=== PATIENT | female | born 1990 | race Caucasian/White ===

== ENCOUNTER 2017-04-16 23:13 | Emergency (ER) | payer OTHER ==
[2017-04-17 00:52] VITALS: BP 144/72
== END 2017-04-17 00:52 | disposition home or self-care (01) ==
LOC: ED 23:13
DX: M25.512 Pain in left shoulder (principal); M54.5 Low back pain; Z79.891 Long term (current) use of opiate analgesic
CPT/HCPCS: J1885; J3301; J3490

== ENCOUNTER 2017-06-04 01:02 | Emergency (ER) | payer OTHER | END 2017-06-04 01:56 | disposition left against medical advice (07) | LOC: ED 01:02 | DX: Z53.21 Procedure and treatment not carried out due to patient leaving prior to being seen by health care provider (principal) | CPT/HCPCS: 36415 ==

== ENCOUNTER 2017-12-29 13:13 | Emergency (ER) | payer OTHER ==
[~2017-12-29] VITALS: Ht 162.6 cm; Wt 100.2 kg
[2017-12-29 13:15] VITALS: Ht 162.6 cm; Wt 100.2 kg
[2017-12-29 15:23] LABS: UA SPECIFIC GRAVITY <=1.005 (1.005-1.035); microscopic required? YES; urine erythrocyte NEGATIVE (NEGATIVE)
[2017-12-29 16:02] VITALS: BP 123/77
== END 2017-12-29 16:02 | disposition home or self-care (01) ==
LOC: ED 13:13
PROVIDERS: Specialist
DX: M54.5 Low back pain (principal); G89.29 Other chronic pain; F17.210 Nicotine dependence, cigarettes, uncomplicated
CPT/HCPCS: J1885

== ENCOUNTER 2018-03-02 08:25 | Emergency (ER) | payer OTHER ==
[~2018-03-02] VITALS: Ht 162.6 cm; Wt 101.3 kg
[2018-03-02 08:28] VITALS: Ht 162.6 cm; Wt 101.3 kg
[2018-03-02 09:23] LABS: PLATELET COUNT 192 x10^3mcL (130-400); RED CELL DISTRIBUTION WIDTH 12.9 % (11.5-14.5)
[2018-03-02 09:46] LABS: CALCIUM 8.5 mg/dL (8.5-10.1); CARBON DIOXIDE 28.7 mmol/L (21-32); CHLORIDE SERUM 106 mmol/L (98-107); CREATININE SERUM 0.6 mg/dL (0.6-1.0); GFR1 > 60 mL/min; GLUCOSE SERUM 91 mg/dL (74-106); POTASSIUM SERUM 3.9 mmol/L (3.5-5.1); SODIUM SERUM 141 mmol/L (136-145)
[2018-03-02 09:50] LABS: ALBUMIN 3.5 g/dL (3.4-5.0); ALKALINE PHOSPHATASE 83 U/L (46-116); ALT/SGPT 22 U/L (14-59); AST/SGOT 13 U/L (15-37); BILIRUBIN TOTAL 0.2 mg/dL (0.20-1.00); CHOLESTEROL 167 mg/dL (<200); CHOLESTEROL/HDL RATIO 3.6; HDL CHOLESTEROL 46 mg/dL (40-60); LIPASE 242 IU/L (73-393); TOTAL PROTEIN, SERUM 7.3 g/dL (6.4-8.2); TRIGLYCERIDES 74 mg/dL (<150)
[2018-03-02 09:51] LABS: FREE T4 0.94 ng/dL (0.76-1.46); FREE THYROXINE INDEX 2.7 ug/dL (1.4-4.5); T4(THYROXINE) 7.4 ug/dL (4.7-13.3)
[2018-03-02 10:00] VITALS: BP 136/83
== END 2018-03-02 10:20 | disposition home or self-care (01) ==
LOC: ED 08:25
PROVIDERS: Specialist
DX: M94.0 Chondrocostal junction syndrome [Tietze] (principal)
CPT/HCPCS: 83880; 84439; J1885; Q0092

== ENCOUNTER 2018-07-12 18:46 | Emergency (ER) | payer OTHER ==
[~2018-07-12] VITALS: Ht 162.6 cm; Wt 106.6 kg
[2018-07-12 18:52] VITALS: Ht 162.6 cm; Wt 106.6 kg
[2018-07-12 20:15] VITALS: BP 135/87
== END 2018-07-12 20:15 | disposition home or self-care (01) ==
LOC: ED 18:46
DX: S93.402A Sprain of unspecified ligament of left ankle, initial encounter (principal); S93.602A Unspecified sprain of left foot, initial encounter; G89.29 Other chronic pain; M54.9 Dorsalgia, unspecified; W10.8XXA Fall (on) (from) other stairs and steps, initial encounter; Y93.89 Activity, other specified; Y92.89 Other specified places as the place of occurrence of the external cause; Y99.8 Other external cause status
CPT/HCPCS: J1885; Q0092

== ENCOUNTER 2018-07-28 08:02 | Emergency (ER) | payer OTHER ==
[~2018-07-28] VITALS: Ht 162.6 cm; Wt 104.3 kg
[2018-07-28 08:09] VITALS: Ht 162.6 cm; Wt 104.3 kg
[2018-07-28 10:18] VITALS: BP 140/81
== END 2018-07-28 10:18 | disposition home or self-care (01) ==
LOC: ED 08:02
DX: J06.9 Acute upper respiratory infection, unspecified (principal); G89.29 Other chronic pain
CPT/HCPCS: Q0092

== ENCOUNTER 2018-11-12 08:32 | Emergency (ER) | payer OTHER ==
[~2018-11-12] VITALS: Ht 162.6 cm; Wt 104.0 kg
[2018-11-12 10:59] VITALS: BP 142/95
== END 2018-11-12 10:59 | disposition home or self-care (01) ==
LOC: ED 08:32
DX: B34.9 Viral infection, unspecified (principal); J98.01 Acute bronchospasm; G89.29 Other chronic pain; M54.9 Dorsalgia, unspecified; F17.210 Nicotine dependence, cigarettes, uncomplicated
CPT/HCPCS: 87804; 99406; J2930; J7613; J7644

== ENCOUNTER 2020-02-23 06:07 | Day surgery (SDC) | payer OTHER ==
[~2020-02-23] VITALS: Ht 162.6 cm; Wt 117.9 kg
[2020-02-23 06:49] VITALS: BP 120/64
[2020-02-23 13:13] VITALS: BP 153/67
== END 2020-02-23 11:10 | disposition home or self-care (01) ==
LOC: DS 06:07 → OR 07:30 → DS 11:10
DX: N87.1 Moderate cervical dysplasia (principal); E66.9 Obesity, unspecified; Z68.42 Body mass index [BMI] 45.0-49.9, adult
CPT/HCPCS: J1170; J2175; J2250; J3010; U0003-CS